=== PATIENT | female | born 1935 | race Caucasian/White ===

== ENCOUNTER 2016-12-15 10:52 | Inpatient (IN) | payer OTHER, MEDICARE ==
[~2016-12-15] VITALS: Ht 170.2 cm; Wt 77.2 kg
[2016-12-15] MEDS ORDERED: ELIQUIS2.5 MG PO (12:23)
[2016-12-15] MEDS ORDERED: KLOR-CON M2020 MEQ PO (12:24)
[2016-12-15] MEDS ORDERED: PRINIVIL20 MG PO (12:24)
[2016-12-15] MEDS ORDERED: COL-RITE100 M1 PO (12:24)
[2016-12-15] MEDS ORDERED: CARVEDILOL6.25 MG PO (12:25)
[2016-12-15] MEDS ORDERED: FUROSEMIDE40 MG PO (12:25)
[2016-12-15] MEDS ORDERED: RANITIDINE HCL150 MG PO (12:25)
[2016-12-15] MEDS ORDERED: ALAVERT10 M1 PO (12:26)
[2016-12-15] MEDS ORDERED: PERCOCET 10/1 TABLET PO (12:26)
[2016-12-15] MEDS ORDERED: LYRICA200 MG PO (12:26)
[2016-12-15 12:35] LABS: EOSINOPHIL (%) 0.1 % (0-5); HEMATOCRIT 25.2 % (36.0-46.0); IMMATURE GRANULOCYTE (%) 0.7 % (0.0-0.7); IMMATURE GRANULOCYTE COUNT 0.1 K/uL; INSTRUMENT ABS NEUTROPHIL CT 7.4 K/uL; LYMPHOCYTE COUNT 1.4 K/uL (1.0-2.8); MCH 31.3 PG (29.0-34.0); MCHC 33.3 G/DL (30.0-36.0); MEAN PLAT.VOLUME 11.4 uM^3 (9.5-12.4); MONOCYTE (%) 5.9 % (3-12); MONOCYTE COUNT 0.6 K/uL (0-0.8); NEUTROPHIL (%) 78.4 % (45-76); NEUTROPHIL COUNT 7.4 K/uL (1.8-6.4); PLATELET COUNT 183 K/uL (156-360); RBC DIS.WIDTH-CV 12.9 % (11.8-14.6); RBC DIS.WIDTH-SD 44.2 % (39-53); WHITE BLOOD COUNT 9.4 K/uL (4.1-10.2)
[2016-12-15 12:36] LABS: RED BLOOD COUNT 2.68 M/uL (3.80-5.20)
[2016-12-15 12:43] LABS: INTER. NORMALIZED RATIO 1.1; PROTHROMBIN TIME 10.8 (9.2-11.2)
[2016-12-15 12:46] LABS: CHLORIDE 104 mEq/L (99-109); POTASSIUM 5.1 mEq/L (3.7-5.4); SODIUM 135 mEq/L (136-147)
[2016-12-15 12:48] LABS: GLUCOSE 101 mg/dL (70-99)
[2016-12-15 12:49] LABS: ANION GAP 11 MEQ/L (2-14)
[2016-12-15 12:52] LABS: GFR ESTIMATE (CALCULATED) 57 mL/min/
[2016-12-15 12:53] LABS: UREA NITROGEN (BUN) 31 mg/dL (9-23)
[2016-12-15] MEDS ORDERED: SIMVASTATIN20 MG PO (14:00)
[2016-12-15] MEDS ORDERED: LISINOPRIL10 MG PO (14:00)
[2016-12-15 16:46] VITALS: BP 118/62
[2016-12-15 17:15] VITALS: BP 107/54
[2016-12-15 20:00] VITALS: BP 121/59
[2016-12-15 20:07] LABS: MCV 94.6 FL (83-99)
[2016-12-15 21:58] VITALS: BP 130/58
[2016-12-15 22:29] VITALS: BP 120/58
[2016-12-15 23:29] VITALS: BP 110/34
[2016-12-16] VITALS (12 sets, daily range): BP systolic 99–142; BP diastolic 49–72
[2016-12-16 03:00] LABS: HEMATOCRIT 25.4 % (36.0-46.0); MCV 93.7 FL (83-99)
[2016-12-16 07:10] LABS: HEMATOCRIT 23.7 % (36.0-46.0); MCV 95.6 FL (83-99)
[2016-12-16 07:30] LABS: ANION GAP 7 MEQ/L (2-14); CHLORIDE 111 MEQ/L (99-109); GFR ESTIMATE (CALCULATED) > 59 mL/min/; GLUCOSE 92 mg/dL (70-99); POTASSIUM 4.2 MEQ/L (3.7-5.4); SAMPLE HEMOLYSIS CHECK 0; SAMPLE ICTERIC CHECK 0; SAMPLE LIPEMIA CHECK 0; SODIUM 140 MEQ/L (136-147); UREA NITROGEN (BUN) 19 mg/dL (9-23)
[2016-12-16 21:20] LABS: HEMATOCRIT 26.4 % (36.0-46.0); MCV 94.3 FL (83-99)
[2016-12-17] VITALS (7 sets, daily range): BP systolic 113–154; BP diastolic 58–81
[2016-12-17 08:48] LABS: HEMATOCRIT 27.2 % (36.0-46.0); MCV 95.4 FL (83-99)
[2016-12-17 20:26] LABS: HEMATOCRIT 25.3 % (36.0-46.0); MCV 95.5 FL (83-99)
[2016-12-18] VITALS (14 sets, daily range): BP systolic 103–154; BP diastolic 51–86
[2016-12-18 02:51] LABS: HEMATOCRIT 22.1 % (36.0-46.0); MCV 95.7 FL (83-99)
[2016-12-18 03:01] LABS: CHLORIDE 112 mEq/L (99-109); SODIUM 140 mEq/L (136-147)
[2016-12-18 03:02] LABS: POTASSIUM 3.3 mEq/L (3.7-5.4)
[2016-12-18 03:04] LABS: GLUCOSE 177 mg/dL (70-99)
[2016-12-18 03:05] LABS: ANION GAP 10 MEQ/L (2-14)
[2016-12-18 03:06] LABS: TOTAL BILIRUBIN 0.7 mg/dL (0.0-1.0)
[2016-12-18 03:07] LABS: ALKALINE PHOSPHATASE 30 IU/L (3-129); GFR ESTIMATE (CALCULATED) > 59 mL/min/
[2016-12-18 03:08] LABS: UREA NITROGEN (BUN) 14 mg/dL (9-23)
[2016-12-18 08:24] LABS: HEMATOCRIT 26.1 % (36.0-46.0); MCV 93.2 FL (83-99)
[2016-12-18 08:41] LABS: MAGNESIUM 1.5 mg/dL (1.3-2.7)
[2016-12-18 16:17] LABS: HEMATOCRIT 28.8 % (36.0-46.0); MCV 91.4 FL (83-99)
[2016-12-18 22:01] LABS: MCV 92.3 FL (83-99)
[2016-12-19 00:08] VITALS: BP 127/64
[2016-12-19 03:34] LABS: HEMATOCRIT 25.4 % (36.0-46.0); MCV 91.7 FL (83-99)
[2016-12-19 03:52] VITALS: BP 128/63
[2016-12-19 08:46] VITALS: BP 134/62
[2016-12-19 09:20] LABS: HEMATOCRIT 27.8 % (36.0-46.0)
[2016-12-19 10:12] LABS: ANION GAP 10 MEQ/L (2-14); CHLORIDE 109 MEQ/L (99-109); GFR ESTIMATE (CALCULATED) > 59 mL/min/; POTASSIUM 3.8 MEQ/L (3.7-5.4); SAMPLE HEMOLYSIS CHECK 0; SAMPLE ICTERIC CHECK 0; SAMPLE LIPEMIA CHECK 0; SODIUM 141 MEQ/L (136-147); UREA NITROGEN (BUN) 14 mg/dL (9-23)
[2016-12-19 10:13] LABS: GLUCOSE 74 mg/dL (70-99)
[2016-12-19 15:30] LABS: HEMATOCRIT 29.8 % (36.0-46.0); MCV 93.1 FL (83-99)
[2016-12-19 16:17] VITALS: BP 141/68
[2016-12-19 19:50] VITALS: BP 151/67
[2016-12-19 20:42] LABS: HEMATOCRIT 27.1 % (36.0-46.0); MCV 93.4 FL (83-99)
[2016-12-19 23:36] VITALS: BP 124/61
[2016-12-20 03:46] VITALS: BP 137/66
[2016-12-20 06:50] LABS: HEMATOCRIT 26.7 % (36.0-46.0); MCH 30.7 PG (29.0-34.0); MCHC 32.6 G/DL (30.0-36.0); MCV 94.3 FL (83-99); PLATELET COUNT 158 K/uL (156-360); RBC DIS.WIDTH-CV 14.8 % (11.8-14.6); RBC DIS.WIDTH-SD 49.1 % (39-53); RED BLOOD COUNT 2.83 M/uL (3.80-5.20)
[2016-12-20 06:51] LABS: WHITE BLOOD COUNT 6.1 K/uL (4.1-10.2)
[2016-12-20 08:10] VITALS: BP 123/60
[2016-12-20 12:56] VITALS: BP 145/66
[2016-12-20 16:13] LABS: HEMATOCRIT 26.3 % (36.0-46.0); MCV 92.9 FL (83-99)
[2016-12-20 16:16] VITALS: BP 122/60
[2016-12-20 20:05] VITALS: BP 138/71
[2016-12-21] VITALS: BP 137/66
[2016-12-21 04:00] VITALS: BP 128/63
[2016-12-21 06:50] LABS: EOSINOPHIL (%) 2.5 % (0-5); EOSINOPHIL COUNT 0.1 K/uL (0-0.3); HEMATOCRIT 26.6 % (36.0-46.0); IMMATURE GRANULOCYTE (%) 0.7 % (0.0-0.7); INSTRUMENT ABS NEUTROPHIL CT 3.1 K/uL; LYMPHOCYTE COUNT 1.5 K/uL (1.0-2.8); MCH 30.7 PG (29.0-34.0); MCHC 32.7 G/DL (30.0-36.0); MEAN PLAT.VOLUME 10.6 uM^3 (9.5-12.4); MONOCYTE (%) 14.9 % (3-12); MONOCYTE COUNT 0.8 K/uL (0-0.8); NEUTROPHIL (%) 55.1 % (45-76); NEUTROPHIL COUNT 3.1 K/uL (1.8-6.4); PLATELET COUNT 175 K/uL (156-360); RBC DIS.WIDTH-CV 14.6 % (11.8-14.6); RBC DIS.WIDTH-SD 48.2 % (39-53); RED BLOOD COUNT 2.83 M/uL (3.80-5.20); WHITE BLOOD COUNT 5.6 K/uL (4.1-10.2)
[2016-12-21 08:06] VITALS: BP 133/67
[2016-12-21 11:24] VITALS: BP 142/67
[2016-12-21] MEDS ORDERED: DIGOXIN125 MCG PO (12:39)
[2016-12-21] MEDS ORDERED: PROTONIX40 MG PO (12:41)
[2016-12-21] MEDS ORDERED: K-DUR20 MEQ PO (12:41)
== END 2016-12-21 14:38 | disposition home or self-care (01) | DRG 379 ==
LOC: EME 10:52 → 5SOUTH 13:32 → EDOF 13:32 → 5SOUTH 16:20
PROVIDERS: Emergency Medicine; Internal Medicine
PROC: 30233N1 Transfusion of Nonautologous Red Blood Cells into Peripheral Vein, Percutaneous Approach (ICD-10-PCS; principal; 2016-12-15)
DX: K57.91 Diverticulosis of intestine, part unspecified, without perforation or abscess with bleeding (principal); I48.0 Paroxysmal atrial fibrillation; K62.5 Hemorrhage of anus and rectum; I35.0 Nonrheumatic aortic (valve) stenosis; I10 Essential (primary) hypertension; E78.2 Mixed hyperlipidemia; I95.9 Hypotension, unspecified; Z90.710 Acquired absence of both cervix and uterus; Z96.651 Presence of right artificial knee joint
CPT/HCPCS: 36415; 74177; 78278; 80048; 80053; 82948; 83735; 85014; 85018; 85025; 85027; 85610; 86900; 86901; 86920; 93005; 99281; 99285; A9512; A9560; C9113; J1160; J1940; J3480; J7030; P9016